=== PATIENT | female | born 1985 | race African-American/Black ===

== ENCOUNTER 2020-10-28 17:47 | Emergency (ER) | payer SELFPAY ==
[2020-10-28] MEDS ORDERED: Lidocaine 1% PF 5 ML VIAL ONE (18:10)
[2020-10-28] MEDS ORDERED: Ketorolac Tromethamine 30 MG/ML VIAL ONE (18:11)
[2020-10-28] MEDS ORDERED: Boostrix 0.5 ML (Tdap) VIAL ONE ×2 (18:11→18:34)
[2020-10-28] MEDS ORDERED: Morphine 4 MG/ML VIAL ONE (18:11)
== END 2020-10-28 20:46 | disposition home or self-care (01) ==
LOC: ERS 17:47
DX: S01.512A Laceration without foreign body of oral cavity, initial encounter (principal); S50.11XA Contusion of right forearm, initial encounter; V89.2XXA Person injured in unspecified motor-vehicle accident, traffic, initial encounter
CPT/HCPCS: 12013; 90471; 90715; J1885; J2270

== ENCOUNTER 2020-11-21 11:32 | Emergency (ER) | payer OTHER, SELFPAY | END 2020-11-21 12:55 | disposition home or self-care (01) | LOC: ERS 11:32 | DX: S66.911A Strain of unspecified muscle, fascia and tendon at wrist and hand level, right hand, initial encounter (principal); V89.2XXA Person injured in unspecified motor-vehicle accident, traffic, initial encounter | CPT/HCPCS: 96372; J1885 ==